=== PATIENT | male | born 1940 | race Two or more races ===

== ENCOUNTER 2019-03-27 13:54 | Inpatient (IN) | payer OTHER ==
[~2019-03-27] VITALS: Ht 157.5 cm; Wt 62.6 kg
[2019-04-09] MEDS ORDERED: AZOR 5-20 MG T1 EACH PO (10:20)
[2019-04-09] MEDS ORDERED: COD LIVER OIL1 EACH PO (10:21)
[2019-04-09] MEDS ORDERED: B-100 COMPLEX100 MG PO (10:21)
== END 2019-05-02 22:18 | DRG 329 ==
LOC: O/R 04-15 07:08 → SURG 04-15 07:08 → EDBD 04-15 09:15 → SURG 04-15 11:00 → ICU 04-19 17:26 → SURH 04-28 14:53 → SURG 05-02 16:41
PROVIDERS: ADMIT Colon & Rectal Surgery
PROC: 07TB4ZZ Resection of Mesenteric Lymphatic, Percutaneous Endoscopic Approach (ICD-10-PCS; 2019-04-15)
PROC: 0DJD8ZZ Inspection of Lower Intestinal Tract, Via Natural or Artificial Opening Endoscopic (ICD-10-PCS; 2019-04-15)
PROC: 0DTN4ZZ Resection of Sigmoid Colon, Percutaneous Endoscopic Approach (ICD-10-PCS; principal; 2019-04-15 11:00)
PROC: 3E0F7GC Introduction of Other Therapeutic Substance into Respiratory Tract, Via Natural or Artificial Opening (ICD-10-PCS; 2019-04-16)
PROC: 4A033R1 Measurement of Arterial Saturation, Peripheral, Percutaneous Approach (ICD-10-PCS; 2019-04-17)
PROC: 05HB33Z Insertion of Infusion Device into Right Basilic Vein, Percutaneous Approach (ICD-10-PCS; 2019-04-17)
PROC: B246ZZZ Ultrasonography of Right and Left Heart (ICD-10-PCS; 2019-04-18)
PROC: BB24Y0Z Computerized Tomography (CT Scan) of Bilateral Lungs using Other Contrast, Unenhanced and Enhanced (ICD-10-PCS; 2019-04-18)
PROC: 0BH17EZ Insertion of Endotracheal Airway into Trachea, Via Natural or Artificial Opening (ICD-10-PCS; 2019-04-21)
PROC: 5A1955Z Respiratory Ventilation, Greater than 96 Consecutive Hours (ICD-10-PCS; 2019-04-21)
PROC: 3E0336Z Introduction of Nutritional Substance into Peripheral Vein, Percutaneous Approach (ICD-10-PCS; 2019-04-21)
PROC: 0DH67UZ Insertion of Feeding Device into Stomach, Via Natural or Artificial Opening (ICD-10-PCS; 2019-04-21)
PROC: 3E0G76Z Introduction of Nutritional Substance into Upper GI, Via Natural or Artificial Opening (ICD-10-PCS; 2019-04-21)
PROC: 4A12X4Z Monitoring of Cardiac Electrical Activity, External Approach (ICD-10-PCS; 2019-04-28)
DX: C18.6 Malignant neoplasm of descending colon (principal); I26.99 Other pulmonary embolism without acute cor pulmonale; J95.821 Acute postprocedural respiratory failure; B37.1 Pulmonary candidiasis; J95.89 Other postprocedural complications and disorders of respiratory system, not elsewhere classified; J98.11 Atelectasis; J91.8 Pleural effusion in other conditions classified elsewhere; I97.191 Other postprocedural cardiac functional disturbances following other surgery; T81.718A Complication of other artery following a procedure, not elsewhere classified, initial encounter; T81.72XA Complication of vein following a procedure, not elsewhere classified, initial encounter; I11.9 Hypertensive heart disease without heart failure; I07.1 Rheumatic tricuspid insufficiency; I34.0 Nonrheumatic mitral (valve) insufficiency; I97.3 Postprocedural hypertension; R09.02 Hypoxemia; D64.89 Other specified anemias

== ENCOUNTER 2019-04-14 08:13 | Day surgery (SDC) | payer OTHER ==
[~2019-04-14 08:13] MED LIST: AZOR 5-20 MG T1 EACH PO; B-100 COMPLEX100 MG PO; COD LIVER OIL1 EACH PO
== END 2019-04-14 15:00 | disposition home or self-care (01) ==
LOC: EDBD → AMB-ENDOS 08:13
DX: K64.1 Second degree hemorrhoids (principal)